=== PATIENT | female | born 1960 | race Caucasian/White ===

== ENCOUNTER → 2021-03-10 | Outpatient (CLI) | payer BC ==
[~2021-03-10] MED LIST: AMBIEN 10 MG TA10 MG PO; AMBIEN CR12.5 MG PO; BUPRENORPHINE HC8 MG SL; DULOXETINE HCL60 MG PO; HYDROCHLOROTHIA25 M1 PO; METHADONE HCL 110 M1 PO; MOBIC7.5 MG PO; NORVASC 2.5 MG2.5 MG PO; OPANA ER20 M1 PO; OPANA ER40 MG PO; OPANA10 MG PO; OPANA5 MG PO; PHENERGAN 25 MG25 MG PO; QVAR8.7 G1 IH; SUBOXONE 4 MG-1 EACH SL; TRAZODONE HCL100 MG PO; TUMS200 MG PO; VITAMIN B-125000 MCG PO; XANAX 0.5 MG0.5 MG PO; ZOLOFT100 MG PO
[2021-03-10 13:49] LABS: URINE BILIRUBIN NEGATIVE (Negative); URINE BLOOD NEGATIVE (Negative); URINE CLARITY CLOUDY; URINE COLOR YELLOW; URINE GLUCOSE-RANDOM* NEGATIVE (Negative); URINE KETONES NEGATIVE (Negative); URINE PROTEIN (DIPSTICK) NEGATIVE (Negative); URINE SPECIFIC GRAVITY >= 1.030 (1.005-1.035); URINE UROBILINOGEN 0.2 E.U./dl (0.2-1.0)
[2021-03-10 13:50] LABS: HEMATOCRIT 34.3 % (37.0-47.0); HEMOGLOBIN 11.4 gm/dL (12.0-15.0); MCHC 33.1 g/dL (28.0-37.0); MCV 84.7 fL (80.0-100.0); RBC 4.05 mil/uL (4.20-5.00); RDW 16.7 % (10.5-14.5); WBC 5.5 thou/uL (4.0-11.0)
[2021-03-10 13:50] LABS: URINE LEUKOCYTES-REFLEX 1+ (Negative); URINE NITRITE-REFLEX POSITIVE (Negative)
[2021-03-10 14:01] LABS: SQUAMOUS 4-10 Moderate /LPF (0-3)
[2021-03-10 14:02] LABS: BACTERIA-REFLEX >30 Many /HPF (None Seen); CASTS None Seen /LPF (None Seen); CRYSTALS None Seen /LPF (None Seen); URINE RBC 1-2 Rare /HPF (NONE SEEN); URINE WBC-REFLEX >25 Many /HPF (0-5)
[2021-03-10 14:06] LABS: INR 0.94; PROTIME 10.3 Seconds (10.5-12.1)
[2021-03-10 14:14] LABS: ALBUMIN 3.6 g/dL (3.4-5.0); CALCIUM 9.2 mg/dL (8.5-10.1); CREATININE 1.2 mg/dL (0.6-1.0); POTASSIUM 3.2 mmol/L (3.5-5.1)
== END ==
LOC: PAC
PROVIDERS: ATTEND Orthopaedic Surgery
DX: Z01.812 Encounter for preprocedural laboratory examination (principal); Z20.822 Contact with and (suspected) exposure to COVID-19; M17.0 Bilateral primary osteoarthritis of knee; Z91.048 Other nonmedicinal substance allergy status; I10 Essential (primary) hypertension; D64.9 Anemia, unspecified

== ENCOUNTER 2021-03-17 07:03 | Observation (INO) | payer BC, OTHER ==
[~2021-03-17] VITALS: Ht 175.3 cm; Wt 77.1 kg
[2021-03-17 11:27] VITALS: BP 153/73
--- NOTE | 2021-03-17 18:18 | NUR ---
ASSUMED PT CARE FROM PACU AT 1500. PT IS ALERT & ORIENTED X4. PT HAS IV SITE ON R HAND 20 GAUGE. PT HAS BILATERAL JAMAAL HOSES KNEE HIGH, POLAR CARE, NELLIE DRESSING. FINISHED ADMISSION. PT AT THE BEDSIDE. PT IS ON 2L NC O2 FOR COMFORT. PT HAD R TOTAL KNEE REPLACEMENT TODAY. PT C/O OF PAIN AND GIVEN PAIN MEDICATION PER PT REQUEST. PT TOLERATED MEDICATION AND DIET WELL. NO C/O OF NAUSEA AND VOMITING. PT ON THE BED, BED ON THE LOWEST POSITION, SIDE RAILS UP, CALL LIGHT WITHIN REACH. WILL CONTINUE TO MONITOR PT. FOLLOW POC.
[2021-03-17 19:45] VITALS: BP 117/67
[2021-03-18 02:25] LABS: HEMATOCRIT 34.4 % (37.0-47.0); HEMOGLOBIN 11.4 gm/dL (12.0-15.0); MCH 28.6 pg (26.0-34.0); MCHC 33.1 g/dL (28.0-37.0); MCV 86.2 fL (80.0-100.0); RBC 3.99 mil/uL (4.20-5.00); RDW 16.5 % (10.5-14.5); WBC 9.9 thou/uL (4.0-11.0)
[2021-03-18 04:45] VITALS: BP 129/87
--- NOTE | 2021-03-18 05:01 | NUR ---
Pt. rested quietly at intervals during the night when checked on during frequent rounds. Pain meds given for c/o pain to right knee with some relief noted (see emar). Polar pack on. No c/o nausea. Dressing to right knee is intact. Voiding without difficulty.
[2021-03-18 07:20] VITALS: BP 121/68
--- NOTE | 2021-03-18 08:48 | NUR ---
ASSESSMENT: CM REVIEWED CHART AND SPOKE WITH PATIENT AT THE BEDSIDE. PT IS S/P TOTAL KNEE REPLACEMENT. PT REPORTS LIVING IN A HOUSE WITH HER . PT REPORTS ABOUT 3 STEPS WITH HANDRAIL TO ENTER. PT REPORTS ONCE INSIDE SHE HAS ABOUT 4 STEPS WITH HANDRAILS TO A LANDING AND ANOTHER SET OF STEPS BUT REPORTS HAVING A STAIR LIFT CHAIR THERE. PT REPORTS THAT SHE HAD A BORROWED WALKER AT HOME FROM FAMILY BUT UNSURE WHO HAS IT. CM DISCUSSED CM CAN ATTEMPT TO GET HER HER OWN WALKER THROUGH INSURANCE. PT IS AGREEABLE AND NO PREFERENCE OF [employer]. CM NOTIFIED LIASON AT [employer] TO VERIFY INSURANCE. PT REPORTS SHE HAS OUTPATIENT THERAPY ARRANGED AT [facility] TO BEGIN ON March. CM DISCUSSED ROLE. PT DOES NOT ANTICIPATE ANY NEEDS OTHER THEN A WALKER. CM WILL CONTINUE TO FOLLOW TO SEE HOW SHE DOES WITH THERAPY.
[2021-03-18 08:53] VITALS: BP 121/68
--- NOTE | 2021-03-18 09:55 | NUR ---
Assumed care of pt at 0700. Pt a&ox4. Pain controlled with prn pain meds. Dressing c/d/i. IVF infusing. JAMAAL toney and SCDs in place. Fall precautions in place. Call light within reach. Will continue to monitor.
[2021-03-18] MEDS ORDERED: TRI-BUFFERED A325 M1 PO (13:06)
[2021-03-18] MEDS ORDERED: MS CONTIN15 MG PO (13:07)
[2021-03-18] MEDS ORDERED: PERCOCET 10-321 EACH PO (13:07)
[2021-03-18 13:15] VITALS: BP 121/68
--- NOTE | 2021-03-18 15:33 | O ---
[facility] [place] [address] OPERATIVE REPORT Name: PABLO MORRISON Room #: 434-P [facility] Sylvester Julian#: [id number] Admission: 03/17/21 Attend Phys: Sunny Velazquez MD Discharge: 03/18/21 Date of : 64 Report #: [id number] THIS REPORT FOR: cc: PERLA - Family physician unknown FAM - Family physician unknown Sunny Velazquez MD ~ DATE OF SERVICE: 03/17/2021 PREOPERATIVE DIAGNOSIS: Right knee osteoarthritis. POSTOPERATIVE DIAGNOSIS: Right knee osteoarthritis. PROCEDURE: Right total knee arthroplasty using Navio robotic assistance. SURGEON: Sunny Velazquez MD. PRINCIPAL CYBER ENGINEER: None. ANESTHESIA: LMA with adductor canal block. IMPLANTS: A Morrison and Nephew size 5 Oxinium Journey II BCS femur, size 4 tibia, size 10 polyethylene, size 32 patella. TOURNIQUET TIME: 50 minutes. ESTIMATED BLOOD LOSS: 25 mL. COMPLICATIONS: None. SPECIMENS: None. CONDITION UPON LEAVING THE OR: Stable. INDICATIONS FOR PROCEDURE: The patient is a 60-year-old female with right knee osteoarthritis. She had failed conservative measures for this and after discussion with her, she elected for right total knee arthroplasty. DESCRIPTION OF PROCEDURE: Risks, benefits, alternatives, complications were discussed in detail with the patient including but not limited to risk of anesthesia, risk of damage to nerves, arteries, blood vessels, risk for infection, bleeding, risk for continued knee pain, DVT, PE, and need for reoperation. Informed consent was obtained from the patient. Right knee was appropriately marked in the preoperative holding area. IV Ancef was given for preoperative antibiotics. She was brought to the operating room and placed in supine position on the operating table. LMA anesthesia was induced without complication. Tourniquet was placed on the right thigh. Right lower extremity [address] [address] OPERATIVE REPORT Name: JULIANNAPABLO Rdaha Room #: 434-P [facility] Sylvester Julian#: [id number] Admission: 03/17/21 Attend Phys: Sunny Velazquez MD Discharge: 03/18/21 Date of : 64 Report #: [id number] was prepped and draped in normal sterile fashion. Timeout was performed properly identifying the patient and procedure as well as the instrumentation and implants. All in the operating room in agreement. Right lower extremity was exsanguinated, tourniquet was inflated. Tourniquet time was 50 minutes. Standard midline approach to knee was made with 10 blade through the skin. Dissection was taken down sharply to the fascia. Deep flaps were developed medially and laterally. Fresh 10 blade was used to make a medial parapatellar arthrotomy and the knee was inspected. There was moderate to severe tricompartmental osteoarthritis. ACL and PCL were removed sharply. Reference pins were placed in the femur and the tibia. The knee was digitally mapped using the studdex robotic system. Intraoperative plan was made. We sized the size 5 femur, the size 4 tibia and a 10 spacer. After acceptance of the intraoperative plan, the distal femoral cut was made with Navio bur. Distal femoral cutting block was pinned in place and chamfer cuts were made. Attention was turned to the tibia. Remainder of the menisci removed with Bovie cautery. Tibial resection guide was pinned in place using Navio for placement. Tibial resection was made. Medial osteophyte was removed from the tibia. Flexion and extension gaps were checked and found to have good balance in flexion and extension both medially and laterally. Tibia sized, found to be a size 4. Size 4 tibial trial was placed, pinned and punched. Size 5 femoral trial was placed, box cut was made. This was then trialed with a size 10 polyethylene. Size 10 polyethylene demonstrated 1-2 mm laxity medially and laterally throughout range of motion of the knee. A 9 mm of bone was resected from the posterior surface of the patella and a size 32 patellar trial button was placed, knee was taken through range of motion, found to be stable, found to have good patellar tracking. Trial components were removed. Bone ends were thoroughly irrigated with normal saline. Final size 4, tibia size 5 Journey II BCS Oxinium femur and a size 32 patella were cemented in place using standard cementation techniques. While the cement cured, a periarticular injection consisting of morphine, ropivacaine, epinephrine, Toradol was placed around the knee joint capsule. After the cement cured, tourniquet was deflated. Hemostasis was obtained with Bovie cautery. Final size 10 polyethylene was placed. A gram of vancomycin was placed deep in the joint. Fascia was closed with 0 Vicryl. Skin was closed with 2-0 Vicryl, skin staple and a NELLIE dressing was applied. The patient tolerated this procedure well and went to recovery room under care of anesthesia postoperatively. <ELECTRONICALLY SIGNED> By: Sunny Velazquez MD 03/18/21 1533 [id number] Sunny Velazquez MD /nt
== END 2021-03-18 13:58 | disposition home or self-care (01) ==
LOC: OR 07:03 → 4S 14:49 → OR 15:02 → 4S 19:44 → OR 19:44 → 4S 03-18 13:58
PROVIDERS: ADMIT Orthopaedic Surgery; ATTEND Orthopaedic Surgery
DX: M17.11 Unilateral primary osteoarthritis, right knee (principal); Z79.899 Other long term (current) drug therapy; Z20.822 Contact with and (suspected) exposure to COVID-19
CPT/HCPCS: 50010; 50101; 50415; 50954; 51130; 51225; 51320; 51412; 53000; 53078; 53365; 56527; 56528; 57095; 57103; 57110; 57127; 57180; 62110; 62900; 64042; 70005

== ENCOUNTER 2021-04-03 13:31 | Observation (INO) | payer BC, OTHER ==
[~2021-04-03] VITALS: Ht 152.4 cm; Wt 90.7 kg
[~2021-04-03 13:31] MED LIST changes: +MS CONTIN15 MG PO; +PERCOCET 10-321 EACH PO; +TRI-BUFFERED A325 M1 PO
[2021-04-03 13:39] VITALS: BP 112/92
[2021-04-03 15:13] LABS: BASOPHILS 0.4 % (0.0-2.0); EOSINOPHILS 1.6 % (0.0-3.0); HEMATOCRIT 27.7 % (37.0-47.0); HEMOGLOBIN 9.2 gm/dL (12.0-15.0); LYMPHOCYTES 12.1 % (24.0-44.0); MCH 27.7 pg (26.0-34.0); MCHC 33.2 g/dL (28.0-37.0); MCV 83.4 fL (80.0-100.0); MONOCYTES 10.7 % (1.0-8.0); PLATELET COUNT 79 thou/uL (150-400); POLYS 75.2 % (36.0-66.0); RBC 3.32 mil/uL (4.20-5.00); RDW 16.7 % (10.5-14.5); WBC 5.3 thou/uL (4.0-11.0)
[2021-04-03 15:22] LABS: CALCIUM 9.7 mg/dL (8.5-10.1); CREATININE 1.2 mg/dL (0.6-1.0); MAGNESIUM 1.5 mg/dL (1.8-2.4); TOTAL BILIRUBIN 0.9 mg/dL (0.2-1.0); TOTAL PROTEIN 6.9 g/dL (6.4-8.2)
[2021-04-03 15:25] LABS: POTASSIUM 2.4 mmol/L (3.5-5.1)
[2021-04-03 18:24] VITALS: BP 124/61
--- NOTE | 2021-04-03 18:28 | NUR ---
ATTEMPTED TO CALL REPORT TO FLOOR AT THIS TIME. WAS NOTED THAT RN TAKING REPORT WAS IN THE MIDDLE OF A DRESSING CHANGE AND WOULD CALL BACK ALSO NOTED DR. MASTERS IS IN ED AND WILL SEE PT AND GO OVER CONCERNS AND CARE PLAN
[2021-04-03 19:12] VITALS: BP 131/68
[2021-04-03 20:00] VITALS: BP 152/85
--- NOTE | 2021-04-04 03:30 | NUR ---
PT ARRIVED ON THE UNIT STABLE,ALERT AND ORIENTED X4. PT WAS ORIENTED TO THE ROOM AND EDUCATED ON THE USE OF CALL LIGHT. PT IS RESTLESS AND IRRITABE WHEN I PAIN. PT WAS GIVEN FENTANYL FOR PAIN MANAGEMENT BUT PREFERS METHADONE INSTEAD. NIGHT SECURITY SERVICES MANAGER WAS INFORMED BUT SECURITY SERVICES MANAGER WANTS ADMITTING DOCTOR TO SEE PT FIRST. PT KEEPS PT HAS UNSTEADY GAIT DUE TO L KNEE SUREY DONE COUPLE OF WEEKS AGO. PT IS UPX1 WITH GB AND WALKER TO THE BR. PT IS TOLERATING RA. FALL PRECAUTIONS IN PLACE. WILL CONTINUE MONITOR.
--- NOTE | 2021-04-04 07:16 | EKG ---
[place] [address] [facility] [place] [address] ELECTROCARDIOGRAM REPORT Name: PABLO LEVINE Room #: 455-P [facility] MHeikeRHeike#: [id number] Admission: 04/03/21 Attend Phys: González Manning MD Discharge: Date of : 64 Report #: [id number] [facility] ED Test Date: 2021-04-03 Test Time: 15:42:21 Pat Name: PABLO LEVINE Department: Room: [facility] Gender: F Licensed Weigher: PEPPER : 1960 Requested By: Ines Avila Order Number: [id number] MD: Jayesh White Measurements Intervals [place] Rate: 84 P: 57 IN: 218 QRS: 32 QRSD: 105 T: 222 QT: 389 QTc: 460 Interpretive Statements Sinus rhythm Prolonged IN interval RSR' in V1 or V2, probably normal variant Nonspecific repol abnormality, diffuse leads Baseline wander in lead(s) V5 No previous ECG available for comparison Electronically Signed On 04-04-2021 7:16:06 CDT by Jayesh White [email or web address] <ELECTRONICALLY SIGNED> By: Jayesh White MD, [facility] 04/04/21 0716 41 41 Jayesh White MD, [facility] /EPI
[2021-04-04 08:01] VITALS: BP 139/64
--- NOTE | 2021-04-04 12:13 | NUR ---
Assumed pt care this am, VS stable received NPO. No swelling of the lips and gums have been noted, was able to take medicatons with a small sip of water with no problems. Verbalized the need to restart her home medications especilly her methadone. POC followed.
[2021-04-04] MEDS ORDERED: BENADRYL25 MG PO (13:08)
[2021-04-04] MEDS ORDERED: PREDNISONE 20 M20 M1 PO (13:08)
[2021-04-04] MEDS ORDERED: PEPCID20 MG PO (13:08)
[2021-04-04 13:40] VITALS: BP 153/64
--- NOTE | 2021-04-04 14:10 | NUR ---
PT ADMITTED RELATED TO DYPOKALEMIA, DYSPHAGIA. CM REVIEWED CHART AND SPOKE WITH CARE TEAM. CM MET WITH PT AT BEDSIDE THIS DAY. PT APPEARED TO BE A&O X4. CM ROLE INTRODUCED. PT INDICATED SHE LIVES IN A HOUSE WITH HER SPOUSE WITH 4 STEPS TO ENTER THEN A STAIR GLIDE. PT HAD DISCHARGED 03/18 AFTER A KNEE REPLACEMENT. PT HAS CANE AND A FWW FOR HOME USE. PT INDICATED SHE PLANS TO RETURN HOME ONCE MEDICALLY STABLE. PT TO DC HOME THIS DAY TO SELF CARE. NO OTHER CM INTERVENTION INDICATED. CASE CLOSED.
== END 2021-04-04 14:52 | disposition home or self-care (01) ==
LOC: ER 13:31 → EROBS 17:25 → 4W 19:49
PROVIDERS: Physician Assistant; ADMIT Internal Medicine; ATTEND Internal Medicine
DX: T78.3XXA Angioneurotic edema, initial encounter (principal); D64.9 Anemia, unspecified; E87.6 Hypokalemia; Z20.822 Contact with and (suspected) exposure to COVID-19; G89.4 Chronic pain syndrome; R13.10 Dysphagia, unspecified; F32.9 Major depressive disorder, single episode, unspecified; F41.9 Anxiety disorder, unspecified; K21.9 Gastro-esophageal reflux disease without esophagitis; I10 Essential (primary) hypertension; Z79.82 Long term (current) use of aspirin; Z79.899 Other long term (current) drug therapy; Y92.89 Other specified places as the place of occurrence of the external cause

== ENCOUNTER → 2021-07-15 | Outpatient (CLI) | payer BC, OTHER ==
[~2021-07-15] MED LIST changes: +BENADRYL25 MG PO; +PEPCID20 MG PO; +PREDNISONE 20 M20 M1 PO
[2021-07-15 10:39] LABS: HEMATOCRIT 31.2 % (37.0-47.0); HEMOGLOBIN 10.1 gm/dL (12.0-15.0); MCH 25.4 pg (26.0-34.0); MCHC 32.2 g/dL (28.0-37.0); MCV 78.7 fL (80.0-100.0); RBC 3.96 mil/uL (4.20-5.00); RDW 18.2 % (10.5-14.5)
[2021-07-15 10:53] LABS: INR 1.01
[2021-07-15 11:08] LABS: URINE BILIRUBIN NEGATIVE (Negative); URINE BLOOD NEGATIVE (Negative); URINE CLARITY CLOUDY; URINE COLOR YELLOW; URINE GLUCOSE-RANDOM* NEGATIVE (Negative); URINE KETONES NEGATIVE (Negative); URINE PROTEIN (DIPSTICK) NEGATIVE (Negative); URINE SPECIFIC GRAVITY >= 1.030 (1.005-1.035); URINE UROBILINOGEN 0.2 E.U./dl (0.2-1.0)
[2021-07-15 11:13] LABS: URINE LEUKOCYTES-REFLEX 1+ (Negative); URINE NITRITE-REFLEX POSITIVE (Negative)
[2021-07-15 11:28] LABS: CASTS None Seen /LPF (None Seen); SQUAMOUS >10 Many /LPF (0-3)
[2021-07-15 11:29] LABS: CALCIUM OXALATE 0-3 Few /LPF (None Seen)
[2021-07-15 11:30] LABS: BACTERIA-REFLEX >30 Many /HPF (None Seen); URINE RBC 1-2 Rare /HPF (NONE SEEN); URINE WBC-REFLEX 6-15 Few /HPF (0-5)
[2021-07-15 11:34] LABS: ALBUMIN 3.5 g/dL (3.4-5.0); POTASSIUM 3.5 mmol/L (3.5-5.1)
[2021-07-15 12:31] LABS: CALCIUM 9.7 mg/dL (8.5-10.1); CREATININE 1.1 mg/dL (0.6-1.0)
== END ==
LOC: PAC 08:20
PROVIDERS: ATTEND Orthopaedic Surgery
DX: M51.27 Other intervertebral disc displacement, lumbosacral region (principal)

== ENCOUNTER 2021-07-25 07:37 | Inpatient (IN) | payer BC, OTHER ==
[~2021-07-25] VITALS: Ht 175.3 cm; Wt 90.7 kg
--- NOTE | ~2021-07-25 | O ---
[facility] [place] [address] OPERATIVE REPORT Name: PABLO MORRISON Room #: 442-P [facility] Sylvester Julian#: [id number] Admission: 07/25/21 Attend Phys: Sunny Velazquez MD Discharge: Date of : 64 Report #: [id number] THIS REPORT FOR: cc: FAM - Family physician unknown FAM - Family physician unknown Sunny Velazquez MD ~ DATE OF SERVICE: 07/25/2021 PREOPERATIVE DIAGNOSIS: Left knee osteoarthritis. POSTOPERATIVE DIAGNOSIS: Left knee osteoarthritis. PROCEDURE: Left total knee arthroplasty using Navio robotic assistance. SURGEON: Sunny Velazquez MD BREAKER OFF: Kindra Delgado PA-C. INDICATION FOR BREAKER OFF: Throughout the case, extensive retraction. ____ and this was afforded to me by my library serials assistant. ANESTHESIA: LMA with adductor canal block. IMPLANTS: A Morrison and Nephew size 5 Journey II BCS Oxinium femur, a size 4 tibia, size 10 constrained polyethylene and size 35 patella. TOURNIQUET TIME: 63 minutes. ESTIMATED BLOOD LOSS: 25 mL. COMPLICATIONS: None. SPECIMENS: None. CONDITION UPON LEAVING THE OR: Stable. INDICATIONS FOR PROCEDURE: The patient is a 61-year-old female with severe left knee osteoarthritis. She had failed conservative measures for this and after discussion with her, she elected for left total knee arthroplasty. DESCRIPTION OF PROCEDURE: Risks, benefits, alternatives, complications were discussed in detail with the patient including but not limited to risk of anesthesia, risk of damage to nerves, arteries, blood vessels, risk for infection, bleeding, risk for continued knee pain and need for reoperation. Informed consent was obtained from the patient. Left knee was appropriately marked in the preoperative holding area. IV Ancef was given for preoperative [address] [address] OPERATIVE REPORT Name: JULIANNAPABLO Radha Room #: 442-P [facility] Sylvester Julian#: [id number] Admission: 07/25/21 Attend Phys: Sunny Velazquez MD Discharge: Date of : 64 Report #: [id number] antibiotics. She was brought to the operating room and placed in supine position on the operating room table. LMA anesthesia was induced without complication. Tourniquet was placed on the left thigh. Left lower extremity was prepped and draped in normal sterile fashion. Timeout was performed properly identifying the patient and procedure as well as the instrumentation and implants. All in the operating room were in agreement. Left lower extremity was exsanguinated and tourniquet inflated. Tourniquet time was 63 minutes. Standard midline approach to the knee was made with 10 blade through the skin. Dissection was taken down sharply to the fascia and deep flaps were developed medially and laterally. Fresh 10 blade was used to make a medial and parapatellar arthrotomy and the knee was inspected. There was severe tricompartmental osteoarthritis. ACL and PCL were removed sharply. Reference pins were placed in the femur and the tibia. The knee was then digitally mapped using the [employer] robotic system. Intraoperative plan was made and we sized the size 5 femur, the size 4 tibia and a 10 spacer. After acceptance of the intraoperative plan, the distal femoral cut was made with Navio bur. Distal femoral cutting block was pinned in place and chamfer cuts were made. Attention was turned to the tibia. Remainder of the menisci removed with Bovie cautery. Tibial resection guide was pinned in place using Navio for placement and tibial resection was made. Flexion and extension gaps were checked and found to have good balance in flexion and extension both medially and laterally. Tibia size was found to be a size 4. Size 4 tibial trial was placed, pinned and punched. Size 5 femoral trial was placed and box cut was made. This was then trialed with a size 10 polyethylene. Size 10 polyethylene demonstrated 1-2 mm of laxity medially throughout range of motion of the knee laterally. She did demonstrate up to 3 mm in deep flexion and it was felt we can make up for this with a constrained implant, 9 mm of bone was resected from the posterior surface of the patella and a size 35 patellar trial button was placed. Knee was taken through range of motion, found to be stable, found to have good patellar tracking. Trial components were removed. Bone ends were thoroughly irrigated with normal saline. Final size 4 tibia, size 5 Journey II BCS Oxinium femur and a size 35 patella were cemented in place using standard cementation techniques. While the cement cured, a periarticular injection consisting of morphine, ropivacaine, epinephrine, Toradol was placed around the knee joint capsule. After the cement cured, tourniquet was deflated. Hemostasis was obtained with Bovie cautery. Final size 10 constrained polyethylene was placed. A gram of vancomycin was placed deep in the joint. Fascia was closed with 0 Vicryl. Skin was closed with 2-0 Vicryl, skin staple and a NELLIE dressing was applied. The patient tolerated this procedure well and went to recovery room under care of anesthesia postoperatively. By: 0609 [id number] Sunny Velazquez MD /jim
[2021-07-25 09:52] VITALS: BP 127/69
[2021-07-25 15:30] VITALS: BP 130/65
[2021-07-25 15:45] VITALS: BP 136/67
[2021-07-25 16:15] VITALS: BP 136/67
--- NOTE | 2021-07-25 19:19 | NUR ---
[age] YEAR OLD FEMALE ADMITTED TO [facility] ROOM 442. PT WAS ADMITTED AFTER SURGEY OF LEFT TOTAL KNEE. PT ALERT AND ORIENTED TIMES FOUR. VSS, IVF INFUSING PER ORDER. PT TOLERATED DINNER, PT AT BEDSIDE DURING ADMISSION ASSESSMENT. WILL CONTIINUE TO MONITOR.
[2021-07-25 20:23] VITALS: BP 142/61
[2021-07-25 23:19] VITALS: BP 131/48
[2021-07-26 03:07] VITALS: BP 112/40
--- NOTE | 2021-07-26 09:48 | NUR ---
Left navio knee. PCP Dr hugo Gómez. Have a walker from the right knee, live home with spouse, few steps. going to go outpt therapy at [facility], more pain in left knee than when had the right knee done per mellissa. Letting her rest and will cont following if needs arise.
[2021-07-26] MEDS ORDERED: DIAZEPAM 10 MG10 M2 PO ×2 (10:57)
[2021-07-26] MEDS ORDERED: COLACE100 MG PO ×2 (10:59)
[2021-07-26 17:24] VITALS: BP 158/71
[2021-07-26 20:01] VITALS: BP 187/72
--- NOTE | 2021-07-27 01:22 | NUR ---
ASSUMED PT CARE AT AROUND 1915 HRS. PT OBSERVED IN TEARS AND LOOKING FRUSTRATED, WANTED MORPHINE AND IT HAD BEEN LESS THAN 2 HRS SINCE SHE HAD A DOSE. PT ADVISED TO HAVE POLAR PACK BACK ON, SHE INITIALLY WAS REFUSING IT.ORAL MEDS AVAILABLE WAS GIVEN.PIV WAS INFILTRATED-TOOK A WHILE TO PLACE ANOTHER AND PT FINALLY GOT SOME MORPHINE. DIAZEPAM ALSO GIVEN FOR ANXIETY.LEFT KNEE WITH NELLIE DRSG AND TEDS IN PLACE, SCDS TO BLE. PT AT FIRST ONLY WANTED TO USE BEDPAN, REGARDLESS OF EDUCATION PROVIDED. SHE SAYS SHE HAS TO WORK WITH NITESH FIRST BEFORE GETTING UP? SHE HOWEVER WANTED TO SIT IN THE CHAIR, AND WITH WALKER, SHE DID WELL.PT IS RESTLSS AND WANTS MORPHINE AGAIN. I WILL GIVE HER HYDROXYZINE AND SOME OXYCODONE.PT QUICKLY FALL BACK TO SLEEP IN BETWEEN TEARFUL MOMENTS.ANTI EMETIC GIVEN X 1.SHE IS DRINKING OKAY. LEFT FOOT WITH GOOD CSM. MANTAINING ON ROOM AIR.WILL CONTINUE TO PROVIDE ATTENTIVE CARE.
[2021-07-27 05:13] LABS: ABSOLUTE NEUTROPHILS 3.5 thou/uL (1.4-8.2); BASOPHILS 0.5 % (0.0-2.0); EOSINOPHILS 4.1 % (0.0-3.0); HEMATOCRIT 29.2 % (37.0-47.0); HEMOGLOBIN 9.6 gm/dL (12.0-15.0); LYMPHOCYTES 5.6 % (24.0-44.0); MCH 25.8 pg (26.0-34.0); MCHC 32.8 g/dL (28.0-37.0); MCV 78.6 fL (80.0-100.0); MONOCYTES 11.9 % (1.0-8.0); PLATELET COUNT 98 thou/uL (150-400); POLYS 77.9 % (36.0-66.0); RBC 3.72 mil/uL (4.20-5.00); RDW 18.2 % (10.5-14.5); WBC 4.5 thou/uL (4.0-11.0)
[2021-07-27 05:16] LABS: CALCIUM 9.3 mg/dL (8.5-10.1); CREATININE 0.8 mg/dL (0.6-1.0); MAGNESIUM 1.5 mg/dL (1.8-2.4); POTASSIUM 3.4 mmol/L (3.5-5.1)
[2021-07-27 07:00] VITALS: BP 153/87
[2021-07-27 07:45] LABS: URINE BILIRUBIN NEGATIVE (Negative); URINE BLOOD TRACE (Negative); URINE CLARITY CLEAR; URINE COLOR YELLOW; URINE GLUCOSE-RANDOM* NEGATIVE (Negative); URINE KETONES NEGATIVE (Negative); URINE LEUKOCYTES-REFLEX NEGATIVE (Negative); URINE PROTEIN (DIPSTICK) NEGATIVE (Negative); URINE SPECIFIC GRAVITY 1.015 (1.005-1.035); URINE UROBILINOGEN 0.2 E.U./dl (0.2-1.0)
[2021-07-27 07:47] LABS: URINE NITRITE-REFLEX POSITIVE (Negative)
[2021-07-27 08:00] LABS: SQUAMOUS 0-3 Few /LPF (0-3); URINE RBC 1-2 Rare /HPF (NONE SEEN)
[2021-07-27 08:01] LABS: BACTERIA-REFLEX >30 Many /HPF (None Seen); WBC CLUMPS Occasional (None Seen)
[2021-07-27 08:02] LABS: CASTS None Seen /LPF (None Seen); CRYSTALS None Seen /LPF (None Seen); URINE WBC-REFLEX 0-5 Rare /HPF (0-5)
--- NOTE | 2021-07-27 12:16 | NUR ---
ASSUMED PT CARE THIS AM. EDUCATED AND INFORMED PT ABOUT PT MEDICATIONS THIS AM PER PT REQUEST. INFORMED PT THAT SHE REFUSED POLAR CARE LAST NIGHT PER NIGHT NURSE. PHYSICAL THERAPY WAS WORKING WITH PT THIS AM. STILL COMPLAINING OF PAIN. PT HAS POLAR PACK, JAMAAL HOSES, NELLIE DRESSING AND SCD. PT AT THE BEDSIDE. PT ON THE CHAIR WITH CALL LIGHT WITHIN REACH. WILL CONTINUE TO MONITOR PT. FOLLOW POC.
--- NOTE | 2021-07-27 15:16 | NUR ---
cm consult this afternoon, for skilled. Herman visited with mellissa via phone call. Education on skilled rehab, her post op pain. no i am not going to rehab i plan on going home tomorrow per mellissa.
[2021-07-27 20:19] VITALS: BP 107/48
[2021-07-28 03:48] VITALS: BP 109/60
--- NOTE | 2021-07-28 06:04 | NUR ---
ASSUMED CARE OF PT AT 1900. PT ASSESSED TO BE AOX4 61F PRESENTING POST L KNEE REPLACEMENT. PT IS EXTREMELY ANXIOUS, STABLE ON ROOM AIR, CAN GET UP X1 WITH A WALKER. ICE PACK GOING THROUGHOUT THE NIGHT, PAIN MEDS AND ANXIETY MEDS GIVEN. DRESSING INTACT, NOTED INCREASING EDEMA TO THE LEFT LEG. WILL CONTINUE TO MONITOR, RESTING IN ROOM NOW.
[2021-07-28 08:14] VITALS: BP 154/74
--- NOTE | 2021-07-28 10:03 | NUR ---
ASSUMED CARE OF PT AT 0700 THIS MORNING. PT IS A/OX4 AND C/O PAIN IN LT KNEE PAIN. PT IS ON OXYCODONE AND MORPHINE IVP TO CONTROL PAIN. LT KNEE HAS POLAR PK, NELLIE DRESSING, TEDS AND SCDS IN PLACE. ASSESSMENTS NOTED IN CHART AND OTHERWISE UNREMARKABLE. FALL PRECAUTIONS ARE IN PLACE. PHYS DELFINOEzequiel HAS EVALUATED PT AND SHE IS CLEARED TO BE DISCHARGED. WAITING ON SURGEON TO SPEAK AND EVAL PT. CALL LIGHT AND OTHER NEEDS ARE IN REACH. PT HAS BEEN SLEEPING OFF AND ON THROUGHOUT THE MORNING. MEDS AND TX GIVEN NEEDED AND SCHEDULED. WILL CONTINUE MONITORING PT AND NOTE ANY CHANGES.
[2021-07-28] MEDS ORDERED: OXYCODONE HCL 55 MG PO ×2 (11:32)
[2021-07-28] MEDS ORDERED: MS CONTIN15 MG PO ×2 (11:32)
[2021-07-28] MEDS ORDERED: TRI-BUFFERED A325 M1 PO ×2 (11:33)
[2021-07-28 11:36] VITALS: BP 154/74
[2021-07-28 11:37] VITALS: BP 154/74
--- NOTE | 2021-07-28 14:46 | NUR ---
met with spouse in community health. Therapy reports spouse wanted to sp with jeyson. Spouse reports in august they will have new insurance. insurance will be a medicare replacement [employer]. Therapy reports plan for home with HH. Discussed outpatient and therapy reports HH better plan for now. Aguilamgt messaged Dr Velazquez and we rec HH orders. No preference of HH agency. Faxed referral to [facility]. Sp with Michael with [facility] they are able to see patient in a.m. Noted to [facility] new insurance in August. they report will not be an issue and plan to make copy of cards. Patient to ut home with HH care.
== END 2021-07-28 12:26 | disposition home health service (06) | DRG 470 ==
LOC: OR → EDSTATUS 11:40 → PRE 12:34 → 4S 15:38 → OR 15:39 → 4S 07-27 14:49
PROVIDERS: Nurse Practitioner; ADMIT Orthopaedic Surgery; ATTEND Orthopaedic Surgery
PROC: 8E0Y0CZ Robotic Assisted Procedure of Lower Extremity, Open Approach (ICD-10-PCS; principal; 2021-07-25)
PROC: 0SRD069 Replacement of Left Knee Joint with Oxidized Zirconium on Polyethylene Synthetic Substitute, Cemented, Open Approach (ICD-10-PCS; principal; 2021-07-25)
DX: M17.12 Unilateral primary osteoarthritis, left knee (principal); F41.9 Anxiety disorder, unspecified; F32.A Depression, unspecified; Z20.822 Contact with and (suspected) exposure to COVID-19; I10 Essential (primary) hypertension; D53.9 Nutritional anemia, unspecified; K21.9 Gastro-esophageal reflux disease without esophagitis
CPT/HCPCS: 10102; 10195; 50010; 50101; 50415; 50954; 51130; 51225; 51412; 53000; 53078; 53365; 56527; 56528; 57095; 57103; 57110; 57127; 57179; 59024; 62110; 62900; 64039; 70005

== ENCOUNTER 2021-07-30 11:56 | Emergency (ER) | payer BC, OTHER ==
[~2021-07-30] VITALS: Ht 175.3 cm; Wt 90.7 kg
[~2021-07-30 11:56] MED LIST changes: +COLACE100 MG PO; +DIAZEPAM 10 MG10 M2 PO; +OXYCODONE HCL 55 MG PO
[2021-07-30 13:02] LABS: ABSOLUTE NEUTROPHILS 2.7 thou/uL (1.4-8.2); BASOPHILS 0.3 % (0.0-2.0); EOSINOPHILS 6.4 % (0.0-3.0); HEMATOCRIT 28.1 % (37.0-47.0); HEMOGLOBIN 9.2 gm/dL (12.0-15.0); LYMPHOCYTES 14.4 % (24.0-44.0); MCH 25.9 pg (26.0-34.0); MCHC 32.8 g/dL (28.0-37.0); MONOCYTES 12.4 % (1.0-8.0); PLATELET COUNT 96 thou/uL (150-400); POLYS 66.5 % (36.0-66.0); RBC 3.55 mil/uL (4.20-5.00); RDW 18.8 % (10.5-14.5); WBC 4.1 thou/uL (4.0-11.0)
[2021-07-30 13:23] VITALS: BP 148/70
== END 2021-07-30 13:34 | disposition home or self-care (01) ==
LOC: ER 11:56
PROVIDERS: Physician Assistant
DX: G89.18 Other acute postprocedural pain (principal); Z41.1 Encounter for cosmetic surgery; Z98.890 Other specified postprocedural states; Z86.2 Personal history of diseases of the blood and blood-forming organs and certain disorders involving the immune mechanism

== ENCOUNTER 2021-08-04 23:49 | Inpatient (IN) | payer OTHER, BC ==
[~2021-08-04] VITALS: Ht 175.3 cm; Wt 101.6 kg
[2021-08-04 23:55] VITALS: BP 166/73
[2021-08-05 03:23] LABS: ABSOLUTE NEUTROPHILS 3.1 thou/uL (1.4-8.2); BASOPHILS 0.7 % (0.0-2.0); EOSINOPHILS 4.9 % (0.0-3.0); HEMATOCRIT 24.2 % (37.0-47.0); LYMPHOCYTES 16.7 % (24.0-44.0); MCH 25.7 pg (26.0-34.0); MCHC 32.9 g/dL (28.0-37.0); MCV 78.1 fL (80.0-100.0); PLATELET COUNT 144 thou/uL (150-400); POLYS 65.7 % (36.0-66.0); RDW 18.4 % (10.5-14.5); WBC 4.7 thou/uL (4.0-11.0)
[2021-08-05 03:48] LABS: CALCIUM 9.8 mg/dL (8.5-10.1); CREATININE 0.9 mg/dL (0.6-1.0); POTASSIUM 3.2 mmol/L (3.5-5.1)
[2021-08-05 08:37] VITALS: BP 110/55
[2021-08-05 20:07] VITALS: BP 151/74
--- NOTE | 2021-08-06 05:36 | NUR ---
PT ADMITTED TO [address] [place] [place] [address] THIS EVENING FROM THE ER. PT HERE WITH A POSSIBLE SEPTIC LEFT KNEE. DRESSING TO LEFT KNEE INTACT WITH SOME MILD DRAINAGE. IV MEDICATIONS GIVEN ORDERED. PT TAKES A VERY LARGE DOSE OF METHADONE AND WAS UPSET THAT SHE WILL NOT BE GETTING UNTIL NOON ON 08/06/21. CONTACTED HAL MCCLURE REGARDING PT METHADONE CONCERN. PER ORDERS GAVE PT ORAL AND IV PAIN MEDICATIONS ORDERED BY HAL MCCLURE. PT SLEEPING AT THIS TIME. WILL CONTINUE TO MONITOR FREQUENTLY.
[2021-08-06 05:38] LABS: HEMOGLOBIN 8.8 gm/dL (12.0-15.0); MCH 25.4 pg (26.0-34.0); MCHC 31.6 g/dL (28.0-37.0); MCV 80.3 fL (80.0-100.0); RBC 3.49 mil/uL (4.20-5.00); RDW 18.9 % (10.5-14.5); WBC 3.7 thou/uL (4.0-11.0)
[2021-08-06 05:58] LABS: CALCIUM 10.1 mg/dL (8.5-10.1); CREATININE 0.9 mg/dL (0.6-1.0); POTASSIUM 3.6 mmol/L (3.5-5.1)
--- NOTE | 2021-08-06 07:59 | NUR ---
REASSESSMENT DOCUMENTED BY NEO TORRES WAS COMPLETED AT 1999 ON 08/05/21.
[2021-08-06 09:15] VITALS: BP 125/82
--- NOTE | 2021-08-06 09:41 | NUR ---
ADM OXYDODONE 5MG PO FOR PAIN TO LEFT KNEE. PT SLURRING HER SPEECH WHEN TALKING, PT HAS HAD PAIN MED MORPHINE IV THIS AM AROUND 0812.
--- NOTE | 2021-08-06 10:29 | HC ---
[facility] [address] CONSULTATION Name: PABLO LEVINE Room #: 440-P ADM IN M.R.#: [id number] Admission: 08/05/21 Attend Phys: González Manning MD Discharge: Date of : 64 Report #: [id number] THIS REPORT FOR: cc: FAM - Family physician unknown FAM - Family physician unknown Todd Zamora MD ~ DATE OF SERVICE: 08/06/2021 INFECTIOUS DISEASE CONSULTATION REASON FOR EVALUATION: Suspected surgical site infection, left total knee arthroplasty. HISTORY OF PRESENT ILLNESS: Chart reviewed. The patient examined. This is a 61-year-old woman with known history of osteoarthritis, underwent an elective left total knee arthroplasty on 07/25/2021. She noted, within a couple days, initially had improved, then had increasing pain, was evaluated in the Emergency Room, was given some antibiotics as well as Toradol. This did not stop the progression, became unable to ambulate, severe pain and noted increasing greenish drainage from the site. It is not entirely clear whether she had fevers. She is noted to have a sed rate of 61. CRP of 128.7. Plain film of the knee showed some postoperative swelling. Components in good position. Venous Doppler did show nonocclusive thrombus involving the distal left femoral vein. Coronavirus testing was negative. Did take a sample of Gram stain, showed no organisms, no white cells. Cultures pending. She was empirically started on vancomycin. She is quite distraught at this point, it is difficult to redirect her. She does admit to abdominal pain. Noted diminished appetite overall. ALLERGIES: None known. MEDICATIONS: Include methadone, p.r.n. morphine, vancomycin, p.r.n. ondansetron. PAST MEDICAL HISTORY: As described above, osteoarthritis, bilateral knee replacements, hypertension, reflux, depression, anxiety, chronic pain syndrome involving the back, abdominoplasty, breast augmentation. SOCIAL HISTORY: Nonsmoker, no ethanol, no illicit drug use. FAMILY HISTORY: Noncontributory. REVIEW OF SYSTEMS: Otherwise, unremarkable. PHYSICAL EXAMINATION: GENERAL: She is quite distraught, anxious secondary to her knee pain. [facility] [address] [place] [address] CONSULTATION Name: PABLO LEVINE Room #: 440-P [facility] [place] .R.#: [id number] Admission: 08/05/21 Attend Phys: González Manning MD Discharge: Date of : 64 Report #: [id number] VITAL SIGNS: Temperature 98.7, pulse 81, respirations 18, blood pressure is 151/74. SKIN: Warm, dry, no rashes. HEENT: Normocephalic. Extraocular muscles intact. NECK: Supple. LUNGS: Diminished breath sounds. Scattered crackles at the bases. HEART: Regular. I do not appreciate a murmur. ABDOMEN: Soft, no significant tenderness to palpation. Left knee has a dressing in place. There is evidence of small amount of drainage, moderate surface inflammation, tender directly over the anterior aspect along the incision. GENITOURINARY AND RECTAL: Deferred. LABORATORY DATA: Electrolytes: Sodium 140, potassium 3.6, chloride 102, bicarbonate is 29, anion gap of 9, BUN and creatinine 9 and 0.9. CBC: White count 3.7, H and H and H 8.8 and 28.0, and platelets 146. Cultures as described above, negative. ASSESSMENT AND PLAN: Suspected surgical site infection, left total knee arthroplasty. We will continue empiric therapy with vancomycin. Await culture results, difficult to ascertain whether this is in part postoperative inflammation given her history of significant pain. We will add incentive spirometry. Monitor expectantly at risk for complications. <ELECTRONICALLY SIGNED> By: Todd Zamora MD 08/06/21 1029 [id number] Todd Zamora MD /nt
--- NOTE | 2021-08-06 11:31 | NUR ---
DR. JOHN HERE TO VISIT PT AND STATED THAT THE DRESSING TO LEFT KNEE CAN BE CHANGED, HE STATED THAT THE DRESSING THAT HAS GREEN ON IT IS NOT INFECTION. IT IS A COLOR CHANGE ON DRESSING MATERIAL. INCISION IS WELL APPROXIMATED, NO SIGNS OF INFECTION IE, REDDNESS, SWELLING OR FOUL SMELLING DRAINAGE.
--- NOTE | 2021-08-06 11:37 | NUR ---
NEW NELLIE DRESSING APPLIED TO LEFT KNEE. PER DR. JOHN PT MAY GO HOME IF ABLE TO GET UP AND FEEL SAFE.
--- NOTE | 2021-08-06 13:00 | NUR ---
PT HERE TO SEE PT AND NOTICED THIS FIELD MANAGER WAS ABOUT TO GIVE METHADONE. HE SAID THAT IT THE VOLUME OF BOTTLE WAS TOO MUCH, AT HOME SHE HAS A LITTLE BOTTLE. CALLED PHARMACY DUE TO CONCERN AND THOUGHT THAT THE DOSE WAS MCG INSTEAD OF MG. PHARMACY CLARIFIED DOSE OF MG. PHARMACY STATED THAT THE CONCENTRATED AMOUNT COMES IN 10MG PER 1ML. THE DOSE HERE IS 1MG/1ML, SO TOTAL DOSE IS 101ML/MG. OT CAME TO ROOM TO ASSESS PT. PT WAS GETTING READY TO EAT.
--- NOTE | 2021-08-06 15:24 | NUR ---
SPOKE TO THE PATIENTS NURSE THIS MORNING AND AGAIN THIS AFTERNOON TO CONFIRM A PICC IS NO LONGER NECESSARY THE PATIENT HAS A PATENT PERIPHERAL IV AND WILL BE DISCHARGING WITHOUT IV ANTIBIOTICS TOMORROW. PICC LINE IS CANCELLED
--- NOTE | 2021-08-06 16:29 | NUR ---
ADM MORPHINE 4MG IV FOR PAIN TO LEFT KNEE. PT EXCIETED ABOUT GOING HOME TOMMORROW.
[2021-08-06 16:48] VITALS: BP 126/66
--- NOTE | 2021-08-06 19:15 | NUR ---
PT JUST REALIZED SHE WAS OFF THE PICC LINE ORDER, PT WAS UPSET SAYING IT MIGHT TAKE A FEW DAYS TO FIND OUT ABOUT THE CULTURE'S. FIRST 24HRS NO GROWTH. PT POSS. GOING HOME IN THE NEXT DAY OR TWO.
[2021-08-06 21:02] VITALS: BP 132/59
--- NOTE | 2021-08-07 03:22 | NUR ---
PT PROGRESSING TOWARDS D/C GOALS. VSS AFEBRILE. MORPHINE CONTROLLING LLE PAIN ADEQUATELY. SHE IS SLEEPING AFTER MORPHINE GIVEN FOR PAIN. PT IS AMBULATORY IN THE ROOM TO WITH WALKER. NO S/S DISTRESS.
[2021-08-07 04:25] VITALS: BP 147/90
[2021-08-07 06:14] VITALS: BP 92/45
[2021-08-07 06:52] LABS: HEMATOCRIT 23.7 % (37.0-47.0); HEMOGLOBIN 7.7 gm/dL (12.0-15.0); MCH 25.5 pg (26.0-34.0); MCHC 32.4 g/dL (28.0-37.0); MCV 78.9 fL (80.0-100.0); RDW 18.2 % (10.5-14.5); WBC 4.1 thou/uL (4.0-11.0)
[2021-08-07 07:04] VITALS: BP 122/59
[2021-08-07 07:13] LABS: CALCIUM 9.6 mg/dL (8.5-10.1); POTASSIUM 3.1 mmol/L (3.5-5.1)
[2021-08-07 14:33] VITALS: BP 122/59
[2021-08-07 15:36] VITALS: BP 117/69
[2021-08-07 19:11] VITALS: BP 115/64
--- NOTE | 2021-08-07 19:26 | NUR ---
PATIENT RESTING IN BED, PAIN MED GIVEN PRN. PICC LINE PLACED, CALL LIGHT WITHIN REACH, WILL CONTINOUS MONITORING.
--- NOTE | 2021-08-08 04:57 | NUR ---
ASSUMED CARE OF PT AROUND 1900. PT IS ALERT AND ORIENTED BUT VERY MOOD LABILE WHEN AWAKE. PT ATTEMPTED TO LEAVE AROUND 2200 BECAUSE SHE WAS "IN THE EMERGENCY ROOM AND THE ALREADY DISMISSED" HER. ONCE IN BED PT QUICKLY FELL BACK ASLEEP. AROUND 0400 PT BECAMED VERY IRRITATED WITH STAFF AND BEGAN GOING THROUGH HER BAGS, AT THIS TIME 2 BAGS OF UNIDENTIFIED PILLS WERE LOCATED. PILLS WERE REMOVED FROM THE ROOM AND SENT TO PHARMACY. PT REMAINS VERY EMOTIONALLY DISTRAUGHT ABOUT HER METHADONE USE, PERSONAL BELONGINGS, AND PAIN MANAGEMENT. PAIN AND ANXIETY HAVE BEEN MANAGED WITH PRN TREATMENT, VSS, NO ACUTE MEDICAL EVENTS AT THIS TIME. EDUCATION REGARDING PAIN MANAGEMENT, INFECTION, DISCHARGE PLANNING, AND GENERAL FACILITY POLICY HAS BEEN DISCUSSED THIS SHIFT WITH LITTLE EVIDENCE OF LEARNING.
[2021-08-08 06:18] LABS: ABSOLUTE NEUTROPHILS 1.7 thou/uL (1.4-8.2); BASOPHILS 0.7 % (0.0-2.0); EOSINOPHILS 8.4 % (0.0-3.0); HEMOGLOBIN 7.4 gm/dL (12.0-15.0); LYMPHOCYTES 21.6 % (24.0-44.0); MCH 25.3 pg (26.0-34.0); MCHC 32.3 g/dL (28.0-37.0); MCV 78.5 fL (80.0-100.0); PLATELET COUNT 151 thou/uL (150-400); POLYS 56.3 % (36.0-66.0); RBC 2.93 mil/uL (4.20-5.00); RDW 18.4 % (10.5-14.5); WBC 3.1 thou/uL (4.0-11.0)
[2021-08-08 06:25] LABS: CALCIUM 9.5 mg/dL (8.5-10.1); MAGNESIUM 1.7 mg/dL (1.8-2.4); POTASSIUM 3.1 mmol/L (3.5-5.1)
[2021-08-08 07:16] VITALS: BP 131/72
--- NOTE | 2021-08-08 13:19 | NUR ---
ASSUMED CARE OF PT AT 0700 THIS MORNING. PT HAS RETURNED DUE TO KNEE PAIN. PT IS A/OX4 AND HAS BEEN CONFUSED WHEN TAKING PAIN MEDS. PT HAS C/O PAIN AT AN 8 ON 1/10 SCALE WITHOUT RELIEF. ASSESSMENTS STED IN CHART AND OTHERWISE UNREMARKABLE. PT IS UP WITH WALKER AND SB ASST. CALL LIGHT AND OTHER NEEDS ARE IN REACH. MEDS AND TX GIVEN NEEDED AND SCHEDULED. WILL CONTINUE TO MONITOR AND NOTE ANY CHANGES. DR. PACK STATED PT IS GOING TO BE DISCHARGED. WAITING FOR DC ORDERS AND EDUCATION NEEDS.
[2021-08-08] MEDS ORDERED: ELIQUIS5 MG PO ×2 (13:32→13:39)
[2021-08-08] MEDS ORDERED: MIRALAX119 GM PO (13:39)
[2021-08-08] MEDS ORDERED: VANCOMYCIN1.25 GM/12 IV (13:39)
--- NOTE | 2021-08-08 14:07 | NUR ---
RD consult received for poor intake. Admit with knee infection s/p TKA. Pt reports appetite coming back and hopefully going home today. Denied any nutrition needs. Constipated-has lactulose and miralax ordered. Low nutrition risk
[2021-08-08] MEDS ORDERED: SLOW FE142 MG PO (14:31)
[2021-08-08 15:27] VITALS: BP 131/72
[2021-08-08 15:46] VITALS: BP 121/59
--- NOTE | 2021-08-08 17:03 | NUR ---
Patient recent dc home with [facility]. She readmits with knee pain. Patient with need for continued infusion at home. Updated [facility] care. Patient with no preference for infusion agency. She was in pain when met with patient requesting pain medication with RN at bedside. Reviewed home infusion and benefits. Sent referral to [facility]. They forwarded to [facility]. [facility] is in network but reports insurance is not showing in network. Sp with [facility] they report will not show benefits until tomorrow. Report difficult today to reach as many providers checking benefits at first of year. Updated spouse and Rn to update patient.
--- NOTE | 2021-08-09 03:18 | NUR ---
PT ASSESSMENT COMPLETED AND VSS. MEDS GIVEN ORDERED AND WELL TOLERATED. SUPPORTIVE AT BEDSIDE. PT EXCITED ABOUT GOING HOME TOMORROW. PRN PAIN MEDICATION AND SCHEDULE PAIN MEDICATION HELPFUL. PT SLEEPING WELL AT THIS TIME. WILL CONTINUE TO MONITOR FREQUENTLY.
--- NOTE | 2021-08-09 06:11 | HC ---
[facility] [place] [address] CONSULTATION Name: PABLO LEVINE Room #: 440-P [facility] IN [facility].#: [id number] Admission: 08/05/21 Attend Phys: John Rojas MD Discharge: Date of : 64 Report #: [id number] THIS REPORT FOR: cc: FAM - Family physician unknown FAM - Family physician unknown Daly Pimentel MD ~ DATE OF SERVICE: 08/05/2021 ORTHOPEDIC CONSULTATION NOTE REASON FOR CONSULTATION: Possible left total knee infection. HISTORY OF PRESENT ILLNESS: The patient is approximately 11 days postoperative from a left total knee arthroplasty. She reports some greenish drainage on her NELLIE dressing. She reports increased pain over the last few days. Denies fevers, has some difficulty ambulating, pain with ambulation. She was evaluated by the Emergency Department and admitted. PAST MEDICAL HISTORY: Significant for angioedema, dysphagia, osteoarthritis, depression, anxiety, and gastroesophageal reflux disease. ALLERGIES: No known drug allergies. REVIEW OF SYSTEMS: MUSCULOSKELETAL: Denies other complaints. NEUROLOGIC: Denies numbness or tingling. MEDICATIONS: Include diazepam, docusate, duloxetine, vitamin B12, methadone, and calcium carbonate. PAST SURGICAL HISTORY: Breast augmentation, right ovary removed, sinus surgery, abdominoplasty, lumbar fusion, and right total knee arthroplasty. SOCIAL HISTORY: Denies smoking or drinking alcohol. LABORATORY DATA: Laboratory studies done on the day of admission show white blood cell count 4.7, hemoglobin 8, hematocrit 24.2, platelet count 144. ESR is 61. Chemistry is grossly normal with the exception of a low potassium at 3.2, and elevated CRP at 128.7. PHYSICAL EXAMINATION: GENERAL: The patient is awake, alert and oriented. She interacts appropriately. She is a well-developed, well-nourished female, in mild distress. She converses well. MOST RECENT VITAL SIGNS: Show temperature of 36.9, heart rate 108, respiratory rate 20, blood pressure 166/73, pulse oximetry 100% on room air. [address] [address] CONSULTATION Name: PABLO LEVINE Room #: 440-[facility] IN [facility].#: [id number] Admission: 08/05/21 Attend Phys: John Rojas MD Discharge: Date of : 64 Report #: [id number] EXTREMITIES: Examination of her left lower extremity at the NELLIE dressing is intact. There is some small greenish drainage about the size of a quarter and then some small other scant places. There is diffuse edema to the knee. There is no alec erythema. There is diffuse tenderness. The knee x-rays done on the date of admission include AP and lateral of the left knee, which shows a well-positioned total knee arthroplasty implant with no signs of infection. The gasper are present. IMPRESSION AND PLAN: Postoperative left total knee arthroplasty with some increase in pain. The wound does not look grossly infected around the dressing. I am awaiting a call back from Dr. Velazquez and we will proceed per his recommendations. I will discuss this with the patient. <ELECTRONICALLY SIGNED> By: Daly Pimentel MD 08/09/21 0611 9 0632 Daly Pimentel MD /nt
[2021-08-09 07:59] VITALS: BP 111/71
[2021-08-09 09:32] VITALS: BP 131/72
--- NOTE | 2021-08-09 10:44 | NUR ---
ASSUMED PT CARE THIS AM. PT IS AWAKE AND ANXIOUS. PT IS UP WITH ASSIST X1 TO THE BEDSIDE COMMODE. PT HAS PICC LINE ON ZOILA SINGLE LUMEN SALINE LOCKED. PT IS ON ROOM AIR. PT REFUSED MIRALAX AND LACTULOSE THIS AM. LAST BM WAS YESTERDAY. PT HAS BEEN ASKING FOR OXYCODONE THIS AM. INFORMED AND EDUCATED PT THAT IT IS NOT DUE YET AND UNABLE TO GIVE TOO SOON. PT ON THE BED, BED ON THE LOWEST POSITON, SIDE RAILS UP, CALL LIGHT WITHIN REACH. WILL CONTINUE TO MONITOR PT. FOLLOW POC.
--- NOTE | 2021-08-09 15:47 | NUR ---
Spoke with [facility]. [facility] [place] $3900 once met coverage at 100%. Cost of drug and supplies $191.00 a week. [facility] contacted spouse and patient with teaching today at 10:30. Mary Ellen copay $9. Teaching completed, plan home today with [facility] infusion. [facility] rec orders no further needs
== END 2021-08-09 13:21 | disposition home health service (06) | DRG 862 ==
LOC: ER 23:49 → ADMC 08-05 04:48 → 4S 08-05 04:48 → EROBS 08-05 09:03 → 4S 08-05 19:49
PROVIDERS: Nurse Practitioner; Nurse Practitioner Family; Student in an Organized Health Care Education/Training Program; ADMIT Hospitalist; ATTEND Hospitalist
PROC: 3E0D7GC Introduction of Other Therapeutic Substance into Mouth and Pharynx, Via Natural or Artificial Opening (ICD-10-PCS; principal; 2021-08-06)
PROC: 05HY33Z Insertion of Infusion Device into Upper Vein, Percutaneous Approach (ICD-10-PCS; 2021-08-07)
DX: T81.40XA Infection following a procedure, unspecified, initial encounter (principal); R65.11 Systemic inflammatory response syndrome (SIRS) of non-infectious origin with acute organ dysfunction; I82.412 Acute embolism and thrombosis of left femoral vein; F32.9 Major depressive disorder, single episode, unspecified; F41.9 Anxiety disorder, unspecified; K21.9 Gastro-esophageal reflux disease without esophagitis; I10 Essential (primary) hypertension; M54.9 Dorsalgia, unspecified; E87.6 Hypokalemia; M19.90 Unspecified osteoarthritis, unspecified site; Z96.652 Presence of left artificial knee joint; D64.9 Anemia, unspecified; Z20.822 Contact with and (suspected) exposure to COVID-19; G89.4 Chronic pain syndrome; Y83.8 Other surgical procedures as the cause of abnormal reaction of the patient, or of later complication, without mention of misadventure at the time of the procedure; Y92.89 Other specified places as the place of occurrence of the external cause; Z79.891 Long term (current) use of opiate analgesic; Z23 Encounter for immunization
CPT/HCPCS: 10102; 27000

== ENCOUNTER 2021-08-16 17:00 | Inpatient (IN) | payer OTHER ==
[~2021-08-16] VITALS: Ht 175.3 cm; Wt 90.7 kg
[~2021-08-16 17:00] MED LIST changes: +ELIQUIS5 MG PO; +MIRALAX119 GM PO; +SLOW FE142 MG PO; +VANCOMYCIN1.25 GM/12 IV
[2021-08-16 17:44] VITALS: BP 127/89
[2021-08-16 18:25] LABS: ALBUMIN 3.2 g/dL (3.4-5.0); CALCIUM 9.4 mg/dL (8.5-10.1); CREATININE 2.2 mg/dL (0.6-1.0); TOTAL BILIRUBIN 0.5 mg/dL (0.2-1.0); TOTAL PROTEIN 6.5 g/dL (6.4-8.2)
[2021-08-16 18:27] LABS: POTASSIUM 2.9 mmol/L (3.5-5.1)
[2021-08-16 19:44] LABS: HEMOGLOBIN 7.9 gm/dL (12.0-15.0); RDW 17.8 % (10.5-14.5); WBC 2.8 thou/uL (4.0-11.0)
[2021-08-16 19:46] LABS: HEMATOCRIT 24.4 % (37.0-47.0); MCH 24.9 pg (26.0-34.0); MCHC 32.3 g/dL (28.0-37.0); MCV 77.3 fL (80.0-100.0); RBC 3.16 mil/uL (4.20-5.00)
[2021-08-16 19:50] LABS: PLATELET COUNT 12 thou/uL (150-400)
[2021-08-16 20:43] LABS: ABSOLUTE NEUTROPHILS 1.9 thou/uL (1.4-8.2)
[2021-08-16 20:45] LABS: ANISOCYTOSIS 1+; PLATELET ESTIMATE MARKEDLY DECREASED; POIKILOCYTOSIS 1+
[2021-08-17] VITALS (8 sets, daily range): BP systolic 114–151; BP diastolic 47–85
--- NOTE | 2021-08-17 03:30 | NUR ---
Pt. arrived to the unit from the emergency room accompanied by staff. She is alert and oriented. Admission assessment and history is completed. Pt. c/o left knee pain and po pain med jgiven (see emar). Assisted to the bedside comode with one person and gait belt. AMARJIT caballero sent to the lab. Bed alarm is on.
[2021-08-17 05:56] LABS: URINE BILIRUBIN NEGATIVE (Negative); URINE BLOOD 1+ (Negative); URINE CLARITY CLEAR; URINE COLOR YELLOW; URINE GLUCOSE-RANDOM* NEGATIVE (Negative); URINE KETONES NEGATIVE (Negative); URINE LEUKOCYTES-REFLEX TRACE (Negative); URINE NITRITE-REFLEX NEGATIVE (Negative); URINE PROTEIN (DIPSTICK) NEGATIVE (Negative); URINE SPECIFIC GRAVITY 1.025 (1.005-1.035); URINE UROBILINOGEN 0.2 E.U./dl (0.2-1.0)
--- NOTE | 2021-08-17 06:30 | NUR ---
Pt. in bed crying and verbalizing that she is in pain. She also reports that nothing has helped her pain since she has been here. This nurse gave patient po pain med (see emar) and upon reassessment she was found asleep. Her other complaint is that nobody went over her meds with her. When this patient came up to the unit I did explain all meds that were ordered on scheduled and prn. She became demanding and wanted the doctor called. Call was placed to Naomi TAY and patient was informed. She was crying more and almost yelling out be- cause she thought nothing was being done. I again told the patient that a call was put out. I spoke to Naomi TAY about patients pain and she did not want to order anything else at this time.
[2021-08-17 07:01] LABS: CASTS None Seen /LPF (None Seen); SQUAMOUS 0-3 Few /LPF (0-3)
[2021-08-17 07:02] LABS: BACTERIA-REFLEX None Seen /HPF (None Seen); CRYSTALS None Seen /LPF (None Seen); URINE RBC 1-2 Rare /HPF (NONE SEEN); URINE WBC-REFLEX 0-5 Rare /HPF (0-5)
--- NOTE | 2021-08-17 07:57 | NUR ---
NOC NURSE REPORTED PT REFUSED TO BE DRAWN BY LAB FOR BLOOD CULTURES. ORDERES CANCELLED PER LAB REQUEST
[2021-08-17 08:00] LABS: RDW 17.6 % (10.5-14.5)
[2021-08-17 08:01] LABS: HEMATOCRIT 22.2 % (37.0-47.0); MCH 24.7 pg (26.0-34.0); MCHC 31.5 g/dL (28.0-37.0); MCV 78.5 fL (80.0-100.0); RBC 2.83 mil/uL (4.20-5.00)
[2021-08-17 08:06] LABS: WBC 1.8 thou/uL (4.0-11.0)
--- NOTE | 2021-08-17 08:12 | EKG ---
[address] [employer] [place] [address] ELECTROCARDIOGRAM REPORT Name: PABLO LEVINE Room #: 443-P ADM IN M.R.#: [id number] Admission: 08/16/21 Attend Phys: González Manning MD Discharge: Date of : 64 Report #: [id number] [facility] ED Test Date: 2021-08-16 Test Time: 20:34:34 Pat Name: PABLO LEVINE Department: Room: 443 Gender: F Microphone Boom Operator: bebe : 1960 Requested By: Maribeth Moser Order Number: [id number] MD: Fox Duron Measurements Intervals Leland Rate: 78 P: 94 NM: 204 QRS: 53 QRSD: 104 T: 11 QT: 418 QTc: 477 Interpretive Statements Sinus rhythm Borderline prolonged NM interval Borderline repolarization abnormality Compared to ECG 04/03/2021 15:42:21 No significant changes Electronically Signed On 08-17-2021 8:12:18 COOLING MACHINE OPERATOR by Fox Duron [email or web address] <ELECTRONICALLY SIGNED> By: Fox Duron MD, [facility] 08/17/21811 33 33 Fox Duron MD, FACC /EPI
[2021-08-17 08:15] LABS: CALCIUM 8.7 mg/dL (8.5-10.1); POTASSIUM 3.3 mmol/L (3.5-5.1)
--- NOTE | 2021-08-17 08:48 | NUR ---
DR GUERRERO CALLED WITH CRITICAL WBC OF 1.8. RETURNED CALL AT 0835-WILL BE ROUNDING ON PATIENT. NO FURTHER ORDERES AT THIS TIME
--- NOTE | 2021-08-17 11:09 | NUR ---
PLATELTS RESULT CALLED FROM LAB. DR POTTS AWARE OF PLATELETS AT 15. AWAITING ORDERS
[2021-08-17 12:26] LABS: % SATURATION 11 % (20-39); IRON 19 ug/dL (50-170); TIBC 172 ug/dL (250-450)
[2021-08-17 12:51] LABS: FOLIC ACID 15.5 ng/mL (8.6-58.9)
[2021-08-17 13:42] LABS: OBSERVED RETIC COUNT 0.93 % (0.6-2.6)
[2021-08-17 16:54] LABS: MCHC 32.3 g/dL (28.0-37.0); MCV 77.3 fL (80.0-100.0); RBC 2.52 mil/uL (4.20-5.00); RDW 17.7 % (10.5-14.5)
[2021-08-17 17:09] LABS: HEMATOCRIT 19.5 % (37.0-47.0); HEMOGLOBIN 6.3 gm/dL (12.0-15.0)
[2021-08-17 17:10] LABS: WBC 1.3 thou/uL (4.0-11.0)
--- NOTE | 2021-08-18 04:33 | NUR ---
RECEIVED CARE OF THIS PATIENT AT 1900. PATIENT ALERT AND ORIENTED X4. C/O EVERY LITTLE THING. CALL LIGHT DOES NOT WORK IN ROOM. TRIED TO REPLACE WITH ANOTHER AND STILL DID NOT WORK. UP WITH SBA BUT GETS UP BY SELF. L KNEE EDEMATOUS AND TENDER TO TOUCH. IV IN R PICC PATENT WITH FLUIDS INFUSING. C/O PAIN AND ANXIETY, MEDS GIVEN. SLEPT MOST OF NIGHT.
--- NOTE | 2021-08-18 07:43 | HC ---
[facility] [place] [address] CONSULTATION Name: PABLO LEVINE Room #: 443-P ADM IN M.R.#: [id number] Admission: 08/16/21 Attend Phys: González Manning MD Discharge: Date of : 64 Report #: [id number] THIS REPORT FOR: cc: FAM - Family physician unknown FAM - Family physician unknown Todd Zamora MD ~ DATE OF SERVICE: 08/17/2021 INFECTIOUS DISEASE CONSULTATION ATTENDING PHYSICIAN: Dr. Manning. REASON FOR EVALUATION: Apparent adverse drug effect due to vancomycin with bone marrow suppression and possible exacerbation of underlying ITP and also some renal failure. HISTORY OF PRESENT ILLNESS: Chart reviewed. The patient examined. This is a 61-year-old woman well known to myself, has been hospitalized up until about a week ago, discharged on parenteral therapy for suspected left total knee arthroplasty surgical site infection, had been getting treatment at home. Followup laboratory noted marked abnormalities including a CBC with leukopenia, profound thrombocytopenia with platelet count of 6 and hemoglobin of 7.0 and in addition to that had elevated creatinine 2.2 with elevated vancomycin trough level 40. She notes that her senses just came on rather quickly had been having significant pain associated with this; however, this has not been new. She was evaluated on the day of admission by orthopedic surgery. They did aspirate and was found to have some bloody drainage, that was sent out for culture, although the suspicion for infection was low. Since laboratory was made available, we directed her to the Emergency Room where she was admitted. She is undergoing additional evaluation, seen by Hematology/Oncology. Working diagnosis likely ITP initiating on corticosteroids. She is having significant amount of pain associated with the left knee. She notes there is some intermittent dyspnea and the recorded temperature 102.2, although the pulse was 88, blood pressure was otherwise fairly stable 143/75. She did receive a dose of levofloxacin. ALLERGIES: None known. CURRENT MEDICATIONS: Include methadone, methylprednisolone, ferrous sulfate, cyanocobalamin, duloxetine, levothyroxine, oxycodone, morphine as needed and p.r.n. ondansetron. PAST MEDICAL HISTORY: Recent total knee replacement with suspected surgical site infection, history of low platelets, depression, anxiety and reflux. SOCIAL AND FAMILY HISTORY: Available in chart. [address] [address] CONSULTATION Name: PABLO LEVINE Room #: 443-P ADM IN M.R.#: [id number] Admission: 08/16/21 Attend Phys: González Manning MD Discharge: Date of : 64 Report #: [id number] REVIEW OF SYSTEMS: Otherwise, as noted above. PHYSICAL EXAMINATION: GENERAL: She is certainly uncomfortable, lethargic. VITAL SIGNS: Temperature 102.2, pulse 88, respirations 18, blood pressure 143/75. SKIN: Warm, dry, no rashes. HEENT: Normocephalic. Extraocular muscles intact. NECK: Supple. LUNGS: Diminished breath sounds. HEART: Regular. I do not appreciate a murmur. ABDOMEN: Limited exam, she is undergoing a Doppler procedure. EXTREMITIES: Left lower extremity has inflammatory changes noted. Left knee in particular appears to be swollen, suspect effusion. GENITOURINARY AND RECTAL: Deferred. LABORATORY DATA: Retic count 0.93. There is a percent absolute retic count 0.0267. Venous ultrasound showed evidence of left lower extremity DVT, knee joint effusion, subcutaneous emphysema. LDH of 206. Iron level of 19. CBC on followup white count 1.8, H and H 7.0 and 22.2, platelets of 15. Back on 08/06, hemoglobin was 8.8, white count was 3.7 and platelet count was 151. ASSESSMENT AND PLAN: Suspected adverse drug effect with multiple issues from the vancomycin including what appears to be ITP, severe anemia and leukopenia secondly suspected surgical site infection left knee total arthroplasty. Thirdly, fevers, certainly could be noninfectious at this point. We will continue Levaquin, certainly has vancomycin on board, which should taper off and creatinine has improved slightly as well as pharmacy to help us follow this, she has significant issues with pain, noted they are trying to address that as able. <ELECTRONICALLY SIGNED> By: Todd Zamora MD 08/18/21 0743 [id number] [id number] Todd Zamora MD /nt
[2021-08-18 07:48] VITALS: BP 133/79
[2021-08-18 09:07] LABS: MCV 77.7 fL (80.0-100.0); PLATELET COUNT 24 thou/uL (150-400); RBC 2.73 mil/uL (4.20-5.00)
[2021-08-18 09:09] LABS: HEMATOCRIT 21.3 % (37.0-47.0); HEMOGLOBIN 6.8 gm/dL (12.0-15.0); MCH 24.8 pg (26.0-34.0); RDW 18.1 % (10.5-14.5)
[2021-08-18 09:19] LABS: ALBUMIN 2.9 g/dL (3.4-5.0); CALCIUM 8.9 mg/dL (8.5-10.1); POTASSIUM 3.5 mmol/L (3.5-5.1); TOTAL BILIRUBIN 0.6 mg/dL (0.2-1.0); TOTAL PROTEIN 6.3 g/dL (6.4-8.2)
[2021-08-18 09:28] VITALS: BP 133/79
--- NOTE | 2021-08-18 09:30 | NUR ---
Unit cm visited with pt/spouse at bedside yesterday. Pt known to cm from recent dc home with iv atb and hh. Jefry is following along and can resume services RN,PT,OT at dc. Pt lives with spouse who is supportive. Pt has needed dme in place. IV atb had finished. Pt getting workup for low counts. Pt up with sba. Pt with numerous complaints yesterday and nursing was updated.
[2021-08-18 09:58] LABS: ABSOLUTE NEUTROPHILS 0.7 thou/uL (1.4-8.2); ANISOCYTOSIS 1+; ATYPICAL LYMPHS 1 %
--- NOTE | 2021-08-18 11:15 | NUR ---
ORDERS FOR EVAL AND TREAT. HAVE ATTEMPTED 3 TIMES WITH Pt DECLINING ALL 3 ATTEMPTS. Pt STATES SHE IS GETTING UP TO THE BATHROOM FINE AND WILL DO HER EXERCISES ON HER OWN AND DOES NOT NEED P.T. HERE. MAIN COMPLAINT IS HER PAIN CONTROL. WILL SIGN OFF AT THIS TIME. PLEASE REORDER IF INDICATED
--- NOTE | 2021-08-18 12:06 | NUR ---
Seen d/t consult. Pt requested RD r/t ordering meals, alternative menu. Pt reported many food items "I can't eat," but when RD asked for a list of preferences, she said it was too many. She appeared very confused and agitated during interaction, reporting that she can't eat any of the food they are serving her. RD took order for dinner this evening from the alternative menu and relayed it to dietary staff. She also was very ademant about having a sandwich at lunch and reported that she called 5 minutes "too late" to change her order and "they wouldn't do it!" RD will attempt to have late tray sent up. She would also like to have restriction removed form heart healthy diet.
--- NOTE | 2021-08-18 13:43 | NUR ---
ASSUMED CARE OF PT AT 0700. PT IMMEDIATLEY PRESENTED WITH COMPLAINTS OF PAIN, LACK OF ATTENTITVENESS FROM OVERALL STAFF, CALL LIGHT NOT WORKING. CHARGE NURSE NOTIFIED AND ORDER PLACED FOR NEW CALL LIGHT. PAIN MEDICATIONS GIVEN, IV ANTIBIOTICS GIVEN. AGUSTÍN LABS FROM PICC LINE AND SENT TO LAB. PT HAD CRITICAL WBC OF 1.0. NOTIFIED. ALL VITAL SIGNS WNL. WILL CONTINUE TO MONITOR.
[2021-08-18 15:53] VITALS: BP 148/85
[2021-08-18 20:29] VITALS: BP 131/76
[2021-08-18 22:06] LABS: HEMOGLOBIN 6.8 g/dL (11.1-15.9)
[2021-08-18 23:06] LABS: HEMATOLOGY COMMENTS Note: (())
[2021-08-19 07:38] VITALS: BP 138/70
[2021-08-19 10:58] LABS: BASOPHILS 0.1 % (0.0-2.0); HEMOGLOBIN 6.8 gm/dL (12.0-15.0); PLATELET COUNT 59 thou/uL (150-400)
[2021-08-19 11:00] LABS: ABSOLUTE NEUTROPHILS 3.1 thou/uL (1.4-8.2); HEMATOCRIT 21.5 % (37.0-47.0); LYMPHOCYTES 11.5 % (24.0-44.0); MCH 24.7 pg (26.0-34.0); MCHC 31.6 g/dL (28.0-37.0); MONOCYTES 3.2 % (1.0-8.0); POLYS 85.2 % (36.0-66.0); RBC 2.75 mil/uL (4.20-5.00); RDW 18.3 % (10.5-14.5)
[2021-08-19 11:08] LABS: WBC 3.6 thou/uL (4.0-11.0)
[2021-08-19 11:16] LABS: ALBUMIN 2.9 g/dL (3.4-5.0); CALCIUM 8.9 mg/dL (8.5-10.1); CREATININE 1.7 mg/dL (0.6-1.0); POTASSIUM 3.3 mmol/L (3.5-5.1); TOTAL BILIRUBIN 0.3 mg/dL (0.2-1.0)
[2021-08-19] MEDS ORDERED: PROTONIX40 M2 PO (14:23)
[2021-08-19] MEDS ORDERED: PREDNISONE 20 M20 M1 PO (14:23)
[2021-08-19] MEDS ORDERED: LEVOFLOXACIN500 MG PO (14:23)
--- NOTE | 2021-08-19 15:41 | NUR ---
ASSUMED CARE OF PT AT 0700. PT CO OF PAIN. GIVEN SCHEDULED MORPHINE AND METHADONE. DR GUERRERO NOTIFIED ABOUT SCHEDULED OXYCODONE - ADVISED NOT TO GIVE ALL THREE AT ONCE. GAVE SCHEDULED MORPHINE AND METHADONE AT 0900. OXY AROUND 1200. PT HAD MULTIPLE COMPLAINTS THROUGHOUT THE DAY. HAD LAB WORK DONE. WBC WENT FROM 1.[address] GUERRERO NOTIFIED. DISCHARGE ORDER PUT IN.
--- NOTE | 2021-08-19 16:43 | NUR ---
PICC LINE D/C BEFORE DISCHARGE. DR GUERRERO PAGED IN REGARDS TO PAIN MEDICATIONS FOR PATIENT AFTER DISCHARGE.
== END 2021-08-19 16:46 | disposition home health service (06) | DRG 813 ==
LOC: ER 17:00 → 4S 21:52 → EROBS 21:52 → 4S 08-17 03:15
PROVIDERS: Internal Medicine; Nurse Practitioner; Nurse Practitioner Family; ADMIT Internal Medicine; ATTEND Internal Medicine
PROC: 30233R1 Transfusion of Nonautologous Platelets into Peripheral Vein, Percutaneous Approach (ICD-10-PCS; principal; 2021-08-17)
PROC: 05HY33Z Insertion of Infusion Device into Upper Vein, Percutaneous Approach (ICD-10-PCS; 2021-08-17)
DX: D69.3 Immune thrombocytopenic purpura (principal); N17.0 Acute kidney failure with tubular necrosis; E87.6 Hypokalemia; D63.8 Anemia in other chronic diseases classified elsewhere; I10 Essential (primary) hypertension; F41.9 Anxiety disorder, unspecified; F32.A Depression, unspecified; Z86.718 Personal history of other venous thrombosis and embolism; Z79.01 Long term (current) use of anticoagulants; D72.819 Decreased white blood cell count, unspecified; G89.4 Chronic pain syndrome; Z96.652 Presence of left artificial knee joint; K21.9 Gastro-esophageal reflux disease without esophagitis
CPT/HCPCS: 10100

== ENCOUNTER → 2021-08-24 | Outpatient (CLI) | payer OTHER ==
[~2021-08-24] MED LIST changes: +LEVOFLOXACIN500 MG PO; +PROTONIX40 M2 PO
[2021-08-24 13:16] LABS: ABSOLUTE NEUTROPHILS 10.6 thou/uL (1.4-8.2); BASOPHILS 0.2 % (0.0-2.0); EOSINOPHILS 0.1 % (0.0-3.0); HEMATOCRIT 29.2 % (37.0-47.0); HEMOGLOBIN 9.3 gm/dL (12.0-15.0); LYMPHOCYTES 5.9 % (24.0-44.0); MCH 25.2 pg (26.0-34.0); MCV 78.7 fL (80.0-100.0); MONOCYTES 7.1 % (1.0-8.0); PLATELET COUNT 264 thou/uL (150-400); POLYS 86.7 % (36.0-66.0); RBC 3.71 mil/uL (4.20-5.00); RDW 19.5 % (10.5-14.5); WBC 12.2 thou/uL (4.0-11.0)
[2021-08-24 13:37] LABS: ALBUMIN 3.4 g/dL (3.4-5.0); CALCIUM 8.6 mg/dL (8.5-10.1); CREATININE 1.7 mg/dL (0.6-1.0); TOTAL BILIRUBIN 0.2 mg/dL (0.2-1.0); TOTAL PROTEIN 6.4 g/dL (6.4-8.2)
[2021-08-24 13:42] LABS: POTASSIUM 2.6 mmol/L (3.5-5.1)
[2021-08-24 14:21] LABS: ANISOCYTOSIS 1+; POIKILOCYTOSIS 1+; TARGET CELLS 1+
[2021-08-24 14:22] LABS: HYPOCHROMASIA 1+
== END ==
LOC: LAB 12:31
PROVIDERS: ATTEND Internal Medicine
DX: D69.6 Thrombocytopenia, unspecified (principal); D64.9 Anemia, unspecified

== ENCOUNTER → 2021-09-08 | Outpatient (CLI) | payer OTHER ==
[2021-09-08 15:16] LABS: ABSOLUTE NEUTROPHILS 1.8 thou/uL (1.4-8.2); BASOPHILS 0.9 % (0.0-2.0); EOSINOPHILS 5.8 % (0.0-3.0); HEMATOCRIT 26.1 % (37.0-47.0); HEMOGLOBIN 8.5 gm/dL (12.0-15.0); LYMPHOCYTES 21.3 % (24.0-44.0); MCH 26.3 pg (26.0-34.0); MCHC 32.6 g/dL (28.0-37.0); MCV 80.8 fL (80.0-100.0); MONOCYTES 11.7 % (1.0-8.0); PLATELET COUNT 111 thou/uL (150-400); POLYS 60.3 % (36.0-66.0); RBC 3.23 mil/uL (4.20-5.00); RDW 21.6 % (10.5-14.5); WBC 3.1 thou/uL (4.0-11.0)
[2021-09-08 15:25] LABS: ALBUMIN 3.2 g/dL (3.4-5.0); CALCIUM 8.9 mg/dL (8.5-10.1); CREATININE 1.1 mg/dL (0.6-1.0); TOTAL BILIRUBIN 0.4 mg/dL (0.2-1.0); TOTAL PROTEIN 6.3 g/dL (6.4-8.2)
[2021-09-08 15:36] LABS: POTASSIUM 2.7 mmol/L (3.5-5.1)
[2021-09-08 16:02] LABS: ANISOCYTOSIS 1+; PLATELET ESTIMATE NORMAL
== END ==
LOC: LAB 14:31
PROVIDERS: ATTEND Internal Medicine
DX: D69.3 Immune thrombocytopenic purpura (principal)

== ENCOUNTER → 2021-09-26 | Outpatient (CLI) | payer OTHER ==
[2021-09-26 11:39] LABS: ABSOLUTE NEUTROPHILS 5.6 thou/uL (1.4-8.2); BASOPHILS 0.8 % (0.0-2.0); EOSINOPHILS 0.5 % (0.0-3.0); HEMATOCRIT 31.8 % (37.0-47.0); LYMPHOCYTES 22.2 % (24.0-44.0); MCH 25.5 pg (26.0-34.0); MCHC 31.6 g/dL (28.0-37.0); MCV 80.7 fL (80.0-100.0); MONOCYTES 9.2 % (1.0-8.0); PLATELET COUNT 265 thou/uL (150-400); POLYS 67.3 % (36.0-66.0); RBC 3.94 mil/uL (4.20-5.00); RDW 19.8 % (10.5-14.5); WBC 8.3 thou/uL (4.0-11.0)
[2021-09-26 12:01] LABS: ALBUMIN 3.4 g/dL (3.4-5.0); CALCIUM 10.1 mg/dL (8.5-10.1); CREATININE 1.1 mg/dL (0.6-1.0); POTASSIUM 3.1 mmol/L (3.5-5.1); TOTAL BILIRUBIN 0.2 mg/dL (0.2-1.0); TOTAL PROTEIN 6.3 g/dL (6.4-8.2)
[2021-09-26 12:48] LABS: ANISOCYTOSIS 1+
[2021-09-27 12:07] LABS: ANTI-DNA SCREEN 1 IU/mL (0-9); ANTI-RNP <0.2 AI (0.0-0.9)
== END ==
LOC: LAB 10:53
PROVIDERS: ATTEND Internal Medicine
DX: D69.3 Immune thrombocytopenic purpura (principal)